=== PATIENT | female | born 1995 | race American Indian/Alaskan Native ===

== ENCOUNTER 2016-08-11 16:39 | Emergency (ER) | payer BC ==
[2016-08-11 21:03] LABS: Bilirubin,Urine NEG (Negative); Blood,Urine NEG (Negative); Ketones,Urine TR mg/dL (Negative); Leukocyte Esterase,Urine SM (Negative); Mucus,Urine 3+ /HPF; Nitrite,Urine NEG (Negative); Protein,Urine <15 mg/dL mg/dL (Negative); Urobilinogen,Urine < 2.0 mg/dL (<2.0); WBC,Urine < 1.0 /HPF (0.0-6.0)
--- NOTE | 2016-08-11 21:03 | Emergency Department Report ---
HPI - General Chief Complaint: Urogenital-Female Time Seen by Provider: 08/11/16 20:58 - HPI HPI: Patient is a 27-year-old female presents to the ED complaining of vaginal discharge with foul odor times one week. Patient describes discharge as white, greenish, creamy consistency. She denies any vaginal lesions or pain. She states last menstrual period was 08/01/2016. She states today she started experiencing left sided lower flank pain. Patient reports recent unprotected sex with her boyfriend. Patient denies any fever, chills, nausea or vomiting vaginal itching, frequency , dysuria, vaginal bleeding, dyspareunia. ED Past Medical Hx - Past Medical History Previous Medical History?: Yes Hx Arthritis: Yes - Surgical History Past Surgical History?: No - Social History Smoking Status: Never Smoker Substance Use Type: None, Marijuana - Medications Home Medications: Home Medications Medication Instructions Recorded Confirmed Last Taken Type Sulfamethoxazole/Trimethoprim 1 each PO BID #14 tablet 08/11/16 Unknown Rx [Bactrim DS TAB] metroNIDAZOLE 0.75% [Vandazole 1 applicator VG QHS #1 tube 08/11/16 Unknown Rx 0.75% VAGINAL] ED Review of Systems ROS: Stated complaint: PELVIC PAIN /LT SIDE PAIN/BRUISES Other details as noted in HPI Constitutional: denies: chills, fever Eyes: denies: eye pain, eye discharge, vision change ENT: denies: ear pain, throat pain Respiratory: denies: cough, shortness of breath, wheezing Cardiovascular: denies: chest pain, palpitations Endocrine: no symptoms reported Gastrointestinal: denies: abdominal pain, nausea, diarrhea Genitourinary: denies: urgency, dysuria, discharge Musculoskeletal: denies: back pain, joint swelling, arthralgia Skin: denies: rash, lesions Neurological: denies: headache, weakness, paresthesias Psychiatric: denies: anxiety, depression Hematological/Lymphatic: denies: easy bleeding, easy bruising Physical Exam - Physical Exam Vital Signs: Vital Signs 08/11/16 17:35 Temperature 98.5 F Pulse Rate 66 Respiratory 18 Rate Blood Pressure 120/71 O2 Sat by Pulse 100 Oximetry Physical Exam: GENERAL: Alert and oriented x3, no apparent distress, Normal Gait, atraumatic. HEAD: Head is normocephalic and a-traumatic. LUNGS: Symetrical with respiration, No wheezing, no rales or crackles, CTAB. HEART: S1, S2 present, regular rate and rhythm without murmur, no rubs, no gallops. ABDOMEN: No organomegaly was noted,Positive bowel sounds, soft, and non- distended. . Nontender to palpation on all Quadrants, NO CVA tenderness. GENITOURINARY: External genitalia without erythema, exudate or discharge. Vaginal vault is with moderate discharge. Cervix is of normal color without lesion. Cervical os is closed with mild discharge, creamy and yellow tinged. No bleeding noted. Uterus is noted to be of normal size and nontender. No cervical motion tenderness. No masses are palpated. The adnexa are without masses or tenderness. SKIN: Warm and dry, No lesions, No ulceration or induration present. ED Course Vital Signs 08/11/16 17:35 Temperature 98.5 F Pulse Rate 66 Respiratory 18 Rate Blood Pressure 120/71 O2 Sat by Pulse 100 Oximetry ED Medical Decision Making - Medical Decision Making 21-year-old male presents with bacterial vaginitis ED course: UAnalysis and gonorrhea and Chlamydia cultures, wet Prep obtained. Urinalysis positive for trace leukocyte esterase Wet prep shows greater than 20% clue cells. Urinalysis shows small leukocyte esterase. Discussed with patient findings and treatment His constipation would treat for bacterial vaginosis and cystitis. Discussed the follow-up with the health department for further STD testing. Patient's alert and oriented times 3. Vital signs are normal patient is in no acute discharge. Patient will be discharged home with instructions.. Critical care attestation.: If time is entered above; I have spent that time in minutes in the direct care of this critically ill patient, excluding procedure time. ED Disposition Clinical Impression: Bacterial vaginitis, Cystitis Disposition: DC-01 TO HOME OR SELFCARE Is pt being admited?: No Does the pt Need Aspirin: No Condition: Stable Instructions: Bacterial Vaginosis (ED), Urinary Tract Infection in Women (ED), Flank Pain (ED) Prescriptions: metroNIDAZOLE 0.75% [Vandazole 0.75% VAGINAL] 1 applicator VG QHS #1 tube Sulfamethoxazole/Trimethoprim [Bactrim DS TAB] 1 each PO BID #14 tablet Referrals: PRIMARY CARE, [Primary Care Provider] - 3-5 Days [facility] [Outside] - 3-5 Days [facility] [Outside] - 3-5 Days Forms: STI Treatment and Prevention, Work/School Release Form(ED) Time of Disposition: 21:45
[2016-08-12 01:43] VITALS: BP 112/75
== END 2016-08-11 21:50 | disposition home or self-care (01) ==
LOC: ED 16:39
DX: N76.0 Acute vaginitis (principal); N30.90 Cystitis, unspecified without hematuria; F12.10 Cannabis abuse, uncomplicated; M19.90 Unspecified osteoarthritis, unspecified site
CPT/HCPCS: 81001; 81025; 87210; 87591; 99284

== ENCOUNTER 2017-03-30 12:13 | Emergency (ER) | payer BC ==
--- NOTE | 2017-03-30 13:42 | Emergency Department Report ---
Chief Complaint: Urogenital-Female Stated Complaint: ABDOMINAL PAIN - HPI History of Present Illness: 21 yo presents with pelvic pain and discharge. Denies VB. Approximately 10 weeks . Dx'd with OSH 5 weeks ago at [facility]. Hx of ovarian cyst. She is concerned about bacterial vaginosis. - Exam Vital Signs: Vital Signs 03/30/17 12:15 Temperature 98.5 F Pulse Rate 89 Respiratory 18 Rate Blood Pressure 119/71 O2 Sat by Pulse 100 Oximetry MSE screening note: Focused history and physical exam performed. Due to findings the following was ordered: ED Disposition for MSE Condition: Stable Referrals: PRIMARY CARE, [Primary Care Provider] - 3-5 Days
[2017-03-30 14:20] LABS: Basophils % (Auto) 0.3 % (0.0-1.8); Eosinophils # (Auto) 0.3 K/mm3 (0.0-0.4); Eosinophils % (Auto) 3.5 % (0.0-4.3); Hematocrit 40.2 % (30.3-42.9); Hemoglobin 13.5 gm/dl (10.1-14.3); Lymphocytes # (Auto) 1.2 K/mm3 (1.2-5.4); Lymphocytes % (Auto) 14.4 % (13.4-35.0); Mean Corpuscular HGB Conc 34 % (30-34); Mean Corpuscular Hemoglobin 31 pg (28-32); Mean Corpuscular Volume 91 fl (79-97); Monocytes # (Auto) 0.5 K/mm3 (0.0-0.8); Monocytes % (Auto) 5.8 % (0.0-7.3); Platelet Count 228 K/mm3 (140-440); Red Blood Count 4.44 M/mm3 (3.65-5.03); Red Cell Distribution Width 13.2 % (13.2-15.2)
[2017-03-30 14:38] LABS: BUN/Creatinine Ratio 20; Blood Urea Nitrogen 10 mg/dL (7-17); Hemolysis Index 52
--- NOTE | 2017-03-30 16:25 | Ultrasound Report ---
FINAL REPORT EXAM: US OB TRANSVAGINAL HISTORY: preg+ crampy pain ? ectopic . LMP 01/14/2017 with estimated age 10 weeks 5 days and EDC 10/21/2017. Serum beta HCG quantitation 99,439. TECHNIQUE: Ultrasound of the pelvis using transabdominal and transvaginal imaging PRIORS: None. FINDINGS: Uterus: Uterus is enlarged in size and normal and homogeneous in echogenicity without focal fibroid formation. The uterus measures 8.8 x 5.9 x 7.4 cm in size. There is a single early viable intrauterine gestation noted. Intrauterine gestation: There is a single intrauterine gestation identified with both a pole and yolk sac. heart rate is monitored at 169 BPM using M-mode doppler. [place]-rump length measurement of 4.0 cm corresponds to estimated age 10 weeks 6 days with EDC 10/20/2017. There is a small subchorionic hemorrhage adjacent to the gestational sac along the anterior left inferior aspect measuring 1.3 x 0.7 x 0.7 cm. Ovaries: Both ovaries appear normal in echogenicity with normal blood flow bilaterally. Left ovary is enlarged. The right ovary measures 2.6 x 2.1 x 2.2 cm and the left ovary measures 5.9 x 4.0 x 4.8 cm in size. There is anechoic simple cystic focus in the left ovary measuring 4.7 cm. Other: There is no evidence for solid adnexal mass is seen. There is no free fluid in the cul-de-sac. IMPRESSION: Single intrauterine viable with an approximate age of 10 weeks 6 days. Small subchorionic hemorrhage is noted adjacent to the gestational sac. A large anechoic simple cyst in the left ovary is present.
--- NOTE | 2017-03-30 16:26 | Ultrasound Report ---
FINAL REPORT EXAM: US OB < = 14 WEEKS FETUS HISTORY: preg+ crampy pain ? ectopic . LMP 01/14/2017 with estimated age 10 weeks 5 days and EDC 10/21/2017. Serum beta HCG quantitation 99,439. TECHNIQUE: Ultrasound of the pelvis using transabdominal and transvaginal imaging PRIORS: None. FINDINGS: Uterus: Uterus is enlarged in size and normal and homogeneous in echogenicity without focal fibroid formation. The uterus measures 8.8 x 5.9 x 7.4 cm in size. There is a single early viable intrauterine gestation noted. Intrauterine gestation: There is a single intrauterine gestation identified with both a pole and yolk sac. heart rate is monitored at 169 BPM using M-mode doppler. [place]-rump length measurement of 4.0 cm corresponds to estimated age 10 weeks 6 days with EDC 10/20/2017. There is a small subchorionic hemorrhage adjacent to the gestational sac along the anterior left inferior aspect measuring 1.3 x 0.7 x 0.7 cm. Ovaries: Both ovaries appear normal in echogenicity with normal blood flow bilaterally. Left ovary is enlarged. The right ovary measures 2.6 x 2.1 x 2.2 cm and the left ovary measures 5.9 x 4.0 x 4.8 cm in size. There is anechoic simple cystic focus in the left ovary measuring 4.7 cm. Other: There is no evidence for solid adnexal mass is seen. There is no free fluid in the cul-de-sac. IMPRESSION: Single intrauterine viable with an approximate age of 10 weeks 6 days. Small subchorionic hemorrhage is noted adjacent to the gestational sac. A large anechoic simple cyst in the left ovary is present.
[2017-03-30 16:52] LABS: Bacteria,Urine 1+ /HPF (Negative); Bilirubin,Urine NEG (Negative); Blood,Urine NEG (Negative); Color,Urine Yellow (Yellow); Mucus,Urine 1+ /HPF; Nitrite,Urine NEG (Negative); Protein,Urine <15 mg/dL mg/dL (Negative); Urobilinogen,Urine < 2.0 mg/dL (<2.0)
--- NOTE | 2017-03-30 17:01 | Emergency Department Report ---
ED Female HPI - General Chief complaint: Urogenital-Female Stated complaint: ABDOMINAL PAIN Time Seen by Provider: 03/30/17 14:19 Source: patient Mode of arrival: Ambulatory Limitations: No Limitations - History of Present Illness Initial comments: 21-year-old female past medical history none presents with complaint of 3 days of vaginal discharge. Slight crampy pelvic pain. Denies any vaginal bleeding. States she is approximately 10 weeks by last menstrual period. States she does have an [facility]. Denies fevers chills nausea vomiting. She has slightly decreased appetite. Slight increased urinary frequency. Urine is cloudy as per patient and she is experiencing some dysuria. MD Complaint: vaginal discharge Onset/Timin -: days(s) Location: suprapubic Radiation: suprapubic Consistency: constant Improves with: urination Are you Now?: Yes Last Menstrual Period: 01/26/17 EDC: 11/02/17 Associated Symptoms: vaginal discharge - Related Data Sexually active: Yes : 1 Para: 0 Previous Rx's Medication Instructions Recorded Last Taken Type Sulfamethoxazole/Trimethoprim 1 each PO BID #14 tablet 08/11/16 Unknown Rx [Bactrim DS TAB] metroNIDAZOLE 0.75% [Vandazole 1 applicator VG QHS #1 tube 08/11/16 Unknown Rx 0.75% VAGINAL] Acetaminophen [Tylenol] 500 mg PO Q6HR PRN #30 tablet 03/30/17 Unknown Rx Deloris Root [Deloris] 250 mg PO TID PRN #30 capsule 03/30/17 Unknown Rx Nitrofurantoin Monohyd/M-Cryst 100 mg PO BID #14 capsule 03/30/17 Unknown Rx [Macrobid 100 mg Capsule] Pnv No.95/Ferrous Fum/Folic AC 1 each PO QDAY #30 tablet 03/30/17 Unknown Rx [ Formula Tablet] Allergies Allergy/AdvReac Type Severity Reaction Status Date / Time No Known Allergies Allergy Verified 03/30/17 12:14 ED Review of Systems ROS: Stated complaint: ABDOMINAL PAIN Other details as noted in HPI Constitutional: denies: chills, fever Eyes: denies: eye pain, eye discharge, vision change ENT: denies: ear pain, throat pain Respiratory: denies: cough, shortness of breath, wheezing Cardiovascular: denies: chest pain, palpitations Endocrine: no symptoms reported Gastrointestinal: denies: abdominal pain, nausea, diarrhea Genitourinary: discharge (white vaginal discharge 3 days). denies: urgency, dysuria Musculoskeletal: denies: back pain, joint swelling, arthralgia Skin: denies: rash, lesions Neurological: denies: headache, weakness, paresthesias Psychiatric: denies: anxiety, depression Hematological/Lymphatic: denies: easy bleeding, easy bruising ED Past Medical Hx - Past Medical History Hx Arthritis: Yes - Social History Smoking Status: Never Smoker Substance Use Type: None - Medications Home Medications: Home Medications Medication Instructions Recorded Confirmed Last Taken Type Sulfamethoxazole/Trimethoprim 1 each PO BID #14 tablet 08/11/16 Unknown Rx [Bactrim DS TAB] metroNIDAZOLE 0.75% [Vandazole 1 applicator VG QHS #1 tube 08/11/16 Unknown Rx 0.75% VAGINAL] Acetaminophen [Tylenol] 500 mg PO Q6HR PRN #30 tablet 03/30/17 Unknown Rx Deloris Root [Deloris] 250 mg PO TID PRN #30 capsule 03/30/17 Unknown Rx Nitrofurantoin Monohyd/M-Cryst 100 mg PO BID #14 capsule 03/30/17 Unknown Rx [Macrobid 100 mg Capsule] Pnv No.95/Ferrous Fum/Folic AC 1 each PO QDAY #30 tablet 03/30/17 Unknown Rx [ Formula Tablet] ED Physical Exam - General Limitations: No Limitations General appearance: alert, in no apparent distress - Head Head exam: Present: atraumatic, normocephalic - Eye Eye exam: Present: normal appearance, PERRL, EOMI - ENT ENT exam: Present: mucous membranes moist - Neck Neck exam: Present: normal inspection - Respiratory Respiratory exam: Present: normal lung sounds bilaterally. Absent: respiratory distress - Cardiovascular Cardiovascular Exam: Present: regular rate, normal rhythm. Absent: systolic murmur, diastolic murmur, rubs, gallop - GI/Abdominal GI/Abdominal exam: Present: soft, normal bowel sounds - External exam: Present: normal external exam Speculum exam: Present: vaginal discharge (whitish vaginal discharge) Bi-manual exam: Present: normal bi-manual exam (no cervical motion tenderness and no adnexal tenderness on exam) - Extremities Exam Extremities exam: Present: normal inspection - Back Exam Back exam: Present: normal inspection - Neurological Exam Neurological exam: Present: alert, oriented X3, CN II-XII intact, normal gait - Psychiatric Psychiatric exam: Present: normal affect, normal mood - Skin Skin exam: Present: warm, dry, intact, normal color. Absent: rash ED Course Vital Signs 03/30/17 12:15 Temperature 98.5 F Pulse Rate 89 Respiratory 18 Rate Blood Pressure 119/71 O2 Sat by Pulse 100 Oximetry ED Medical Decision Making - Lab Data Result diagrams: 03/30/17 14:03 03/30/17 14:03 - Medical Decision Making A/P: Vaginal discharge, 1-ultrasound shows IUP with small subchorionic bleed. Proximally 10 weeks by estimation. 2-wet prep unremarkable, chlamydia cultures sent, urine culture sent. UA shows large leukocytes with wbc's as patient does have urinary symptoms we'll treat empirically with Macrobid which is safe during 3-follow up with [facility]. Patient started on vitamins. 4- Case d/w Dr. Marshall before discharge Critical care attestation.: If time is entered above; I have spent that time in minutes in the direct care of this critically ill patient, excluding procedure time. ED Disposition Clinical Impression: Vaginal discharge Qualifiers: Weeks of gestation: 10 weeks Qualified Code(s): Z3A.10 - 10 weeks gestation of Urinary tract infection Qualifiers: Urinary tract infection type: acute cystitis Hematuria presence: without hematuria Qualified Code(s): N30.00 - Acute cystitis without hematuria Disposition: - TO HOME OR SELFCARE Is pt being admited?: No Does the pt Need Aspirin: No Condition: Stable Instructions: Urinary Tract Infection in Women (ED), Dysuria (ED), ( ED) Prescriptions: Acetaminophen [Tylenol] 500 mg PO Q6HR PRN #30 tablet PRN Reason: Pain Deloris Root [Deloris] 250 mg PO TID PRN #30 capsule PRN Reason: Nausea Nitrofurantoin Monohyd/M-Cryst [Macrobid 100 mg Capsule] 100 mg PO BID #14 capsule Pnv No.95/Ferrous Fum/Folic AC [ Formula Tablet] 1 each PO QDAY #30 tablet Referrals: [facility] [Provider Group] - 3-5 Days [facility] [Provider Group] - 3-5 Days Forms: Work/School Release Form(ED) Time of Disposition: 17:01
[2017-03-30 17:20] VITALS: BP 112/80
== END 2017-03-30 17:19 | disposition home or self-care (01) ==
LOC: ED 12:13
DX: O23.41 Unspecified infection of urinary tract in pregnancy, first trimester (principal); Z3A.10 10 weeks gestation of pregnancy
CPT/HCPCS: 36415; 76801; 76817; 80048; 81001; 84702; 85025; 86850; 86900; 86901; 87086; 87210; 87591

== ENCOUNTER 2018-07-02 12:03 | Emergency (ER) | payer BC ==
--- NOTE | 2018-07-02 13:25 | Emergency Department Report ---
Chief Complaint: Urogenital-Female Stated Complaint: ABD PAIN Time Seen by Provider: 07/02/18 13:24 - HPI History of Present Illness: r side pain lmp 2 w ago vag dc not worried about std no hx bv concerned for uti mse completed MSE screening note: Focused history and physical exam performed. Due to findings the following was ordered: ED Disposition for MSE Condition: Stable
[2018-07-02 13:26] VITALS: BP 120/78
[2018-07-02 14:11] LABS: HCG Qualitative,Urine Negative (Negative)
[2018-07-02 14:13] LABS: Bacteria,Urine 1+ /HPF (Negative); Bilirubin,Urine NEG (Negative); Blood,Urine NEG (Negative); Color,Urine Yellow (Yellow); Mucus,Urine FEW /HPF; Protein,Urine <15 mg/dL mg/dL (Negative); Urobilinogen,Urine < 2.0 mg/dL (<2.0)
--- NOTE | 2018-07-02 15:29 | Emergency Department Report ---
ED Dysuria HPI - HPI Chief Complaint: Urogenital-Female Stated Complaint: ABD PAIN Time Seen by Provider: 07/02/18 13:24 Duration: 1 Day Location of Discomfort: Suprapubic Severity: Mild Symptoms: Dysuria: Yes, Frequency: No, Suprapubic Pain: No, Flank Pain: No, Fever: No, Hematuria: No, Abdominal Pain: No, Previous UTI's: Yes Other History: 22 YO WITH DYSURIA AND HX BV AROUND MENSES. NO FEVER. NO ABD PAIN. NO CVA TENDERNESS. AMBULATATORY. ED Review of Systems ROS: Stated complaint: ABD PAIN Other details as noted in HPI Comment: All other systems reviewed and negative ED Past Medical Hx - Past Medical History Previous Medical History?: No Hx Arthritis: Yes - Surgical History Past Surgical History?: No - Family History Family history: no significant - Social History Smoking Status: Never Smoker Substance Use Type: None - Medications Home Medications: Home Medications Medication Instructions Recorded Confirmed Last Taken Type metroNIDAZOLE [Flagyl] 500 mg PO Q12HR #20 tab 07/02/18 Unknown Rx Dysuria Exam - Exam General: Vital signs noted. No distress. Alert and acting appropriately. Exam: Yes Moist Mucous Membranes, No CVA Tenderness, No Abdominal Tenderness, No Rigidity or Guarding Labs: Lab Results 07/02/18 Range/Units 13:44 Urine Color Yellow (Yellow) Urine Turbidity Slightly-cloudy (Clear) Urine pH 6.0 (5.0-7.0) Ur Specific [place] 1.025 (1.003-1.030) Urine Protein <15 mg/dl (Negative) mg/dL Urine Glucose (UA) Neg (Negative) mg/dL Urine Ketones Neg (Negative) mg/dL Urine Blood Neg (Negative) Urine Nitrite Neg (Negative) Ur Reducing Substances Not Reportable Urine Bilirubin Neg (Negative) Urine Ictotest Not Reportable Urine Urobilinogen < 2.0 (<2.0) mg/dL Ur Leukocyte Esterase Lg (Negative) Urine WBC (Auto) 11.0 H (0.0-6.0) /HPF Urine RBC (Auto) 4.0 (0.0-6.0) /HPF U Epithel Cells (Auto) 1.0 (0-13.0) /HPF Urine Bacteria (Auto) 1+ (Negative) /HPF Urine Mucus Few /HPF Urine HCG, Qual Negative (Negative) ED Course Vital Signs 07/02/18 13:23 Temperature 98.1 F Pulse Rate 61 Respiratory 18 Rate Blood Pressure 120/78 [Right] O2 Sat by Pulse 99 Oximetry ED Medical Decision Making - Medical Decision Making Vital Signs 07/02/18 13:23 Temperature 98.1 F Pulse Rate 61 Respiratory 18 Rate Blood Pressure 120/78 [Right] O2 Sat by Pulse 99 Oximetry Labs 07/02/18 13:44 Urine Color Yellow Urine Turbidity Slightly-cloudy Urine pH 6.0 Ur Specific [place] 1.025 Urine Protein <15 mg/dl Urine Glucose (UA) Neg Urine Ketones Neg Urine Blood Neg Urine Nitrite Neg Ur Reducing Substances Not Reportable Urine Bilirubin Neg Urine Ictotest Not Reportable Urine Urobilinogen < 2.0 Ur Leukocyte Esterase Lg Urine WBC (Auto) 11.0 H Urine RBC (Auto) 4.0 U Epithel Cells (Auto) 1.0 Urine Bacteria (Auto) 1+ Urine Mucus Few Urine HCG, Qual Negative DC HOME WITH DC PLAN OF CARE PT SYMPTOMS ARE ASSOCIATED WITH MENSES SHE STATES LUCIA WORKS FOR HER Critical care attestation.: If time is entered above; I have spent that time in minutes in the direct care of this critically ill patient, excluding procedure time. ED Disposition Clinical Impression: UTI (urinary tract infection), Dysuria Disposition: DC-01 TO HOME OR SELFCARE Is pt being admited?: No Does the pt Need Aspirin: No Condition: Stable Instructions: Urinary Tract Infection in Women (ED) Additional Instructions: MEDS ORDERED TODAY HYDRATE WELL WITH WATER FOLLOW UP PCP REFERRAL BELOW [facility] Prescriptions: metroNIDAZOLE [Flagyl] 500 mg PO Q12HR #20 tab Referrals: GENO HANCOCK MD [Primary Care Provider] - 3-5 Days Time of Disposition: 15:35
== END 2018-07-02 15:30 | disposition home or self-care (01) ==
LOC: ED 12:03
DX: N39.0 Urinary tract infection, site not specified (principal); M19.90 Unspecified osteoarthritis, unspecified site
CPT/HCPCS: 81001; 81025

== ENCOUNTER 2019-03-09 17:52 | Emergency (ER) | payer BC ==
[2019-03-09 18:57] VITALS: BP 107/45
--- NOTE | 2019-03-09 18:57 | Event Note ---
ED Screening Note ED Screening Note: states she right labia abscess that began yesterday denies having in the past no dysuria no abd pain no n/v/d no fever PMHx none no allergies to meds LNMP: 03/04/2019 This initial assessment/diagnostic orders/clinical plan/treatment(s) is/are subject to change based on patients health status, clinical progression and re- assessment by fellow clinical providers in the ED. Further treatment and workup at subsequent clinical providers discretion. Patient/guardian urged not to elope from the ED as their condition may be serious if not clinically assessed and managed. Initial orders include: ua, urine preg
== END 2019-03-09 21:20 | disposition left against medical advice (07) ==
LOC: ED 17:52
DX: N89.8 Other specified noninflammatory disorders of vagina (principal); Z53.21 Procedure and treatment not carried out due to patient leaving prior to being seen by health care provider